=== PATIENT | male | born 1945 | race Caucasian/White ===

== ENCOUNTER 2020-08-12 18:21 | Emergency (ER) | payer MEDICARE ==
[~2020-08-12] VITALS: Ht 172.7 cm; Wt 93.6 kg
--- NOTE | 2020-08-12 18:40 | NUR ---
OPENING NOTE: PT [facility] FROM PRIMARY CARE DOC. PT HAD MENTIONED THAT HE HAS BEEN HAVING CHEST PAIN FOR 3 WEEKS ON THE RIGHT SIDE. PT STATES THAT THE PAIN IS SUDDEN AND SHARP. EKG COMPLETE. CONNECTED TO ALL MONITORS. FAMILY AT BEDSIDE.
[2020-08-12 19:06] LABS: BASOPHILS % (AUTO) 1 % (0-1); EOSINOPHILS % (AUTO) 5 % (1-7); LYMPHOCYTES % (AUTO) 31 % (22-44); MD NO; MEAN CORPUSCULAR HEMOGLOBIN 31.2 pg (27.5-34.5); MEAN CORPUSCULAR HGB CONC 33.9 g/dL (33.2-36.2); MEAN PLATELET VOLUME 8.5 fL (7.4-10.4); MONOCYTES % (AUTO) 10 % (2-9); NEUTROPHILS % (AUTO) 53 % (42-75); PLATELET COUNT 288 x10^3/uL (130-400); RED BLOOD COUNT 4.65 x10^6/uL (4.38-5.82); RED CELL DISTRIBUTION WIDTH 13.5 % (9.4-14.8)
[2020-08-12 19:14] LABS: ALANINE AMINOTRANSFERASE 30 U/L (12-78); ALBUMIN 3.9 g/dL (3.4-5.0); ANION GAP 5 mmol/L (5-15); CALCIUM 9.1 mg/dL (8.5-10.1); CHLORIDE 107 mmol/L (98-107)
[2020-08-12 19:19] LABS: ALKALINE PHOSPHATASE 52 U/L (45-117); BILIRUBIN,TOTAL 0.4 mg/dL (0.2-1.0); CREATININE 0.91 mg/dL (0.7-1.3); TOTAL PROTEIN 7.4 g/dL (6.4-8.2); TROPONIN I < 0.015 ng/mL (0.000-0.045)
[2020-08-12] MEDS ORDERED: CEFTRIAXONE 1,000 MG ONE (20:53)
[2020-08-12] MEDS ORDERED: LIDOCAINE-MPF 1%, 5ML ONE (20:54)
[2020-08-12] MEDS ORDERED: CEFTRIAXONE 1,000 MG IM ONE (21:00)
[2020-08-12 21:02] VITALS: BP 146/58
--- NOTE | 2020-08-12 21:02 | NUR ---
PT A&OX4, MED GIVEN IM TO GLUTEUS DEJUAN AND PT TOLERATED WELL, NO KNOWN ALLERGIES. AND PT WATCHED TO BE SURE NO ADVERSE REACTION. PIV D/C'D AND CATH INTACT. PT AMBULATORY AND F/U AND D/C INSTRUCTIONS GIVEN TO PT AND HE V/U.
== END 2020-08-12 21:05 | disposition home or self-care (01) ==
LOC: ED 20:01
DX: R07.2 Precordial pain (principal); J90 Pleural effusion, not elsewhere classified; J15.9 Unspecified bacterial pneumonia; I10 Essential (primary) hypertension; R07.89 Other chest pain; R94.31 Abnormal electrocardiogram [ECG] [EKG]; Z85.46 Personal history of malignant neoplasm of prostate
CPT/HCPCS: 36415; 71045; 80053; 83605; 84484; 85025; 93005; 96372; 99285; J0696